=== PATIENT | male | born 1965 | race Caucasian/White ===

== ENCOUNTER 2023-11-14 10:00 | Outpatient (RCR) | payer OTHER, SELFPAY ==
--- NOTE | 2023-10-19 13:09 | HP.PTEVAL_ITS ---
Patient's Visit Information Visit Information Visit Information: ESLENE DE LA CRUZ is a 58 year old M referred to Physical Therapy by Dr. Jose A Whitaker DO with a diagnosis of L hip pain. Date of Evaluation: 10/10/23 Physical Therapist: Jhonny Denise DPT Visit Plan Frequency: 1x/Week Duration: 4 Weeks Plan: 1) L hip mobilizations: lateral distraction, long axis traction to improve L hip ROM 2) Hip strengthening: ABD and ext especially as ROM allows 3) Squat mechanics 4) Stretching ant. hip 5) Balance, DL and SL (HEP: SLR, stand hip ABD & EXT, seated HS and adductor stretch) Subjective Subjective: Pt presents to PT with L hip pain and arthritis that began a while ago. Pt has been taking ibuprofen and icy hot and had appointment with physician 2 weeks ago. Pt reports no falls and would like to get back to walking and working with less pain. 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 Going up stairs a little worse than going down. Pt feels his hip gets weak when standing for long periods of time and has a tendency to favor his RLE. 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 Also has some difficulty with putting on his shoes. Aggs: getting in/out of car, walking, standing, stairs. Eases: resting Pain Left Hip: Pain Intensity (Out of 10): 0 Pain Intensity Range: 0 and 8 Objective Objective: MMT: global 3+/5, L hip ABD 3/5 with pain, L hip ext 2+/5 painful ROM: L hip severely limited 10% ER, 0% IR, lacking 8 deg from neutral hip, 60 deg flex R hip 25% IR, 50% ER PALPATION: federico lower leg edema, worse in RLE, raised areas in L medial thigh/adductor region OBSERVATIONS: R lateral shift and knee valgus with squatting, no pain. Resting flexed position of L hip. Painful to lay on L side GAIT: antalgic gait with decreased stance time on LLE, pt afraid of hip giving out TU.46 s with no LOB or AD 5x STS: 12.47 Pt overall limited by pain with walking and WBing activity, affecting his ab ility to walk prolonged periods, work, and get in/out of a car. Pt is severely limited in L hip ROM d/t advanced arthritis, but he would like to avoid surgery if possible. Pt would benefit from joint mobilizations before exercises to help with pain, had positive results after trialing lateral distraction and long axis manual traction. Balance/Special Test Scores Lower Extremity Functional Score: 48 Goals Goal 1:: Pt will demonstrate 4/5 global hip strength with no instances of pain Goal Time Frame: 2-4 Weeks Goal 2:: Pt will improve L hip ER/IR to 25% or normal ROM with no pain Goal 3:: Pt will be able to amb. 300+ feet with <2/10 pain and more equal stance time Goal Time Frame: 2-4 Weeks Goal 4:: Pt will score 58/80 on LEFS to demonstrate an increase in indep ADLs and ability to work Goal Time Frame: 2-4 Weeks Rehabilitation Potential Physical Therapy Diagnosis: Pt presents to physical therapy with L hip pain and difficulty walking secondary to advanced arthritis and decreased joint space according to recent x-rays. Pt would benefit from PT to address L hip strength, ROM, pain, and tolerance to WB/standing/walking activity. Rehabilitation Potential: Fair Anticipated Interventions Patient/Client Instruction: Educate patient on: Plan of Care For the Purpose of:: To decrease pain, To increase ROM, To improve muscle performance and motor function, To improve ability to perform ADL's, To increase tolerance to activity/condition/position, To improve performance and independence with ADL's, To improve ability of physical actions for home/community/work/leisure, To improve gait and locomotor functions, To decrease soft tissue restriction, To increase flexibility/ROM, To improve endurance, To improve balance, To improve safety with gait, To assume or resume ADL's, To improve self management, To improve ability to perform tasks related to life management and To improve tolerance to ADL's Therapeutic Exercise to Include: Strength training, Balance training, Postural training, Flexibilty training, Gait and locomotor training and Passive ROM For the Purpose of:: To decrease pain, To increase ROM, To improve muscle performance and motor function, To improve ability to perform ADL's, To increase tolerance to activity/condition/position, To improve performance and independence with ADL's, To improve ability of physical actions for home/ community/work/leisure, To improve gait and locomotor functions, To improve health of tissue, To decrease soft tissue restriction, To increase flexibility/ROM, To improve safety with gait, To improve self management, To improve ability to perform tasks related to life management and To improve tolerance to ADL's Manual Therapy Techniques to Include: Mobilization, Passive ROM and Soft tissue mobilization For the Purpose of:: To decrease pain, To increase ROM, To improve ability to perform ADL's, To increase tolerance to activity/condition/position, To improve health of tissue, To decrease soft tissue restriction, To increase flexibility/ROM and To improve tolerance to ADL's Cryotherapy (ice pack, ice massage): Yes Thermo therapy (hot pack): Yes Ultrasound (thermal/non thermal): Yes For the Purpose of:: To decrease pain, To decrease soft tissue restriction and To improve tolerance to ADL's Text: Thank you for the opportunity to evaluate your patient. For Medicare and Medicare HMO plans, please review the plan of care and approve it. It will need to be FAXED BACK to us at [phone] for Medicare purposes. For Medicare only, by signing this I certify the plan of care. Please let me know if there are questions or concerns regarding this plan of care. Physician Signature: Date:
== END 2023-11-14 19:00 | disposition home or self-care (01) ==
LOC: PT 10:00
PROVIDERS: Visit Provider Orthopaedic Surgery
DX: M25.552 Pain in left hip (principal)
CPT/HCPCS: 97110; 97140; 97161

== ENCOUNTER 2025-01-29 01:13 | Emergency (ER) | payer OTHER, SELFPAY ==
[2025-01-29 01:14] VITALS: BP 162/96; PULSE 71; RESP 18; TEMP 36.6; O2SAT 97; BMI 35.7
--- NOTE | 2025-01-29 01:42 | EKG12_ITS ---
Test Reason : Blood Pressure : */* mmHG Vent. Rate : 73 BPM Atrial Rate : 73 BPM P-R Int : 204 ms QRS Dur : 88 ms QT Int : 402 ms P-R-T Axes : 34 -38 -3 degrees QTcB Int : 442 ms Normal sinus rhythm Left axis deviation Abnormal ECG Confirmed by RAQUEL RAMIREZ, IDALIA ([id number]), video effects editor JACEY WHITE ([id number]) on 01/29/2025 10:37:53 AM Referred By: Confirmed By: IDALIA GARCÍA MD
--- NOTE | 2025-01-29 01:42 | ED.VIS.CHEST ---
HPI History of Present Illness Chief Complaint: Chest Pain Informant: patient Onset/Context/Timing Onset: Weeks (1 to 2 weeks.) Activity at onset: gradual Timing: Intermittent Quality: Positive for Dull Location: Left Chest Current Severity: Gone Maximum Severity: Mild Worsened By: Nothing Relieved By: Nothing Associated Symptoms: Negative for Nausea, Vomiting, Diaphoresis, Dyspnea, Cough, Fever, Lightheadedness, Acid Reflux or Palpitations Narrative Prior Similar Symptoms: Yes Recent Illness/Hospitalization: No CVD Risk Factors: Negative for Hypertension, Diabetes, Hypercholesterolemia, Family History 1' </=55 or Smoking PE Risk Factors: Negative for Recent Travel/Surgery, Recent Immobilization or OCP + Smoking + >/=35 TAD Risk Factors: Negative for Marfan's Syndrome PFSH PFSH Medical History no medical history no medical history Home Medications ?Medication ?Instructions ?Recorded ?Last Taken ?Type doxycycline hyclate 100 mg tablet 100 mg PO BID 01/29/25 Unknown History Allergy/AdvReac Type Severity Reaction Status Date / Time No Known Allergies Allergy Verified 01/29/25 01:14 Family History no significant family his Surgical History no surgical history Social History Smoking Status: Never smoker alcohol intake: never ROS ROS ED ROS Narrative Atypical nonexertional chest pain. Constitutional Constitutional ED: Denies chills or fever(s) Eyes Eyes: Reports none ENT ENT ED: Denies ear pain Cardiovascular Cardiovascular: Reports chest pain; Denies palpitations or racing heartbeat Respiratory/Chest Respiratory/Chest: Denies cough, dyspnea or dyspnea on exertion Gastrointestinal Gastrointestinal: Denies abdominal pain, diarrhea, melena, nausea or vomiting Genitourinary Genitourinary ED: Denies dysuria or hematuria Musculoskeletal Musculoskeletal: Denies arthralgias or back pain Integumentary Denies abscess Neurologic Neurologic: Denies headache(s) Psychiatric Psychiatric: Denies anxiety Endocrine Endocrinology: Denies cold intolerance Hematologic/Lymphatic Hematologic/Lymphatic: Denies easy bleeding, easy bruising or lymphadenopathy Allergic/Immunologic Allergic/Immunologic ED: Denies mouth swelling, tongue swelling or urticaria EXAM Physical Exam Narrative Exam Narrative: 59-year-old male sitting upright in bed. Vital signs are stable afebrile. No acute distress. No one else present in the room. Pulse ox 97% on room air no hypoxia. Clinically looks well. H EENT exam pupils round react light. Moist pink members. Neck nontender JVD. Lungs clear to auscultation bilaterally. Equal symmetrical. Heart regular rhythm rate about 70 no murmur. Chest wall and ribs are nontender. No ecchymosis or bruising. No redness or warmth. No reproducible pain. Abdomen soft nontender. Normal bowel sounds without peritoneal signs. Moving all 4 extremities. Equal symmetrical metal base blocker strength. Dorsi plantarflexion intact. Calves are nontender without edema or cords. Back nontender. Neurologically is awake alert no focal motor deficits. Exam benign. Const Vital Signs: 01/29/25 01:14 01/29/25 01:14 01/29/25 01:47 Temperature 97.9 F Temperature Source Oral Pulse Rate 71 Respiratory Rate 18 Respiratory Effort Normal Blood Pressure 162/96 H Blood Pressure Mean 118 Pulse Ox 97 98 Oxygen Delivery Method Room Air Room Air 01/29/25 02:12 01/29/25 03:00 Temperature Temperature Source Pulse Rate 65 64 Respiratory Rate 18 18 Respiratory Effort Blood Pressure 134/70 H 128/82 H Blood Pressure Mean 91 97 Pulse Ox 98 98 Oxygen Delivery Method Room Air Room Air Positive well nourished and well developed; Negative for cachectic, contractures or unkempt General Appearance ED: well developed and NAD; Negative for unkempt, cachectic, contractures or pallor Nutritional Appearance: Negative for cachectic HEENT Reports moist mucous membranes normocephalic and atraumatic Eyes PERRL and EOMs intact bilaterally Neck no lymphadenopathy, supple and no JVD Chest Wall inspection of chest normal and palpation of chest normal Chest: Negative for tenderness Resp normal respiratory effort and clear to auscultation bilaterally Cardio regular rate, regular rhythm, S1 normal heart sound, S2 normal heart sound and no murmurs Peripheral Pulses: pulses 2+ throughout GI normal to inspection, nondistended, normoactive bowel sounds, soft to palpation, non-tender, non-distended and no masses Back/Spine no CVA tenderness and no thoracic nor lumbar tenderness Extremity normal to inspection General Extremety ED: Negative for edema, pulses abnormal or tenderness General Extremity: Negative for edema or pulses abnormal Neuro oriented x3 and CN's II-XII intact bilaterally Sensorium / Orientation: awake, alert, oriented to person, oriented to place and oriented to time; Negative for confused, lethargic or stuporous Motor Exam: strength 5/5 throughout Psych mental status grossly normal Appearance: Negative for unkempt Attitude: No agitated Mood & Affect: Negative for depressed, anxious or tearful Skin no rashes or lesions noted and no wounds General Skin Exam: Negative for jaundice or pallor Rashes: No rashes noted Trauma: Negative for abrasion or laceration MDM MDM MDM Narrative Medical decision making narrative: 59-year-old male atypical nonexertional chest pain. Low suspicion of feel this is cardiac. Undergo cardiac workup if its negative will be discharged home. I do not think he needs to be admitted for stress test or heart cath unless he has elevated troponins. Exam is benign. Is not reproducible. He has no history or risk factors for DVT or PE. Repeat exam patient is doing well at 3:13 AM. We went over his test results. Given he has had this pain for a week and a half. He has had a recent workup at another emergency department and has negative workup tonight my suspicion is low I am comfortable with him being discharged to home as is the patient. Outpatient follow-up. History & Record Review Discussion w/independent historian: Patient Lab Data Attestation: I reviewed the patient's lab results. Lab results narrative: CBC shows a white count 8. H&H 14 and 42. Platelets 268. Electrolytes show sodium 136. Gap 11. Normal BUN of 18 creatinine 1.1. Glucose 101. Troponin 11. Chest x-ray chronic changes no acute process. Labs: Laboratory Results - last 24 hr 01/29/25 01:20 WBC 8.4 RBC 4.84 Hgb 14.9 Hct 42.3 MCV 87.4 MCH 30.8 MCHC 35.2 RDW Std Deviation 44.1 H RDW Coeff of Rakesh 13.8 Plt Count 268 MPV 9.7 Immature Gran % (Auto) 0.400 Neut % (Auto) 55.6 Lymph % (Auto) 34.2 [place] % (Auto) 8.3 Eos % (Auto) 0.7 Baso % (Auto) 0.8 Absolute Neuts (auto) 4.7 Absolute Lymphs (auto) 2.87 Nucleated RBC % 0 Sodium 136 Potassium 3.7 Chloride 101 Carbon Dioxide 24.7 Anion Gap 11 BUN 18 Creatinine 1.19 Estim Creat Clear Calc 90.35 Est GFR (MDRD) Non-Af 71 BUN/Creatinine Ratio 15.5 Glucose 101 H Calcium 9.6 Troponin T High Sens 11 Radiography Chest X-Ray - ED: 2 View, Read by ED Physician, Read by Radiologist, Heart, Lungs, Mediastinum, Bony Structures, No Acute Disease and Chronic Changes Diagnostic Testing: Clinical Impression(s) from Imaging Studies Chest X-Ray 01/29/25 02:15 IMPRESSION: No evidence of acute disease. Reading Location: [facility] Chest x-ray, 2 views, AP and lateral, interpreted by myself and the radiologist shows no acute abnormality. Normal cardiac silhouette. Normal lung [place]. Chronic changes. Rhythm Strip Rhythm Strip: Sinus Rhythm Rate: 73 Ectopy: None EKG Initial EKG: Attestation: I personally reviewed and interpreted this EKG as follows: Interpretation: Sinus Rhythm and No Acute Injury Pattern Comments: Normal sinus rhythm rate of 73 no acute signs of WI or ischemia. No dysrhythmia. Normal EKG. Discharge Plan Triage Chief Complaint: Chest Pain ED Provider: Jeovany Mustafa Dx/Rx/DC Orders Prescriptions: No Action doxycycline hyclate 100 mg tablet 100 mg PO BID Primary Care Provider: Care Physician,No Primary Referrals: Care Physician,No Primary [Primary Care Provider] - Print Language: Ukrainian
[2025-01-29 01:47] VITALS: O2SAT 98
[2025-01-29 01:48] LABS: Absolute Lymphocyte Count 2.87 X10^3/uL (0.83-4.51); Absolute Neutrophil Count 4.7 X10^3/uL (2.0-7.7); Basophil# 0.07 X10^3/uL; Basophil% 0.8 % (0-1); Eosinophil# 0.06 X10^3/uL; Eosinophils% 0.7 % (0-5); Hematocrit 42.3 % (40-54); Hemoglobin 14.9 g/dL (13.0-16.5); Lymphocyte # 2.87 X10^3/ul (0.83-4.51); Lymphocyte % 34.2 % (19-41); Mean Corp Hgb Conc 35.2 g/dL (32-36); Mean Corpuscular Hgb 30.8 pg (27.0-32.0); Mean Corpuscular Volume 87.4 fL (80-94); Mean Platelet Vol. 9.7 fl (6.2-12.0); Monocyte% 8.3 % (0-10); NRBC Flagged by Analyzer 0 % (0-5); Neutrophil # 4.67 X10^3/uL (2.7-7.7); Neutrophil % 55.6 % (47-70); Platelet Count 268 K/mm3 (150-450); RBC Distribution Width CV 13.8 % (11.6-14.6); RBC Distribution Width SD 44.1 fl (35.1-43.9); Red Blood Count 4.84 M/mm3 (4.6-6.2); White Blood Count 8.4 K/mm3 (4.4-11.0)
[2025-01-29 02:12] VITALS: BP 134/70; PULSE 65; RESP 18; O2SAT 98
[2025-01-29 02:13] LABS: Anion Gap 11 (5-15); BUN 18 mg/dL (4-19); BUN/Creat Ratio 15.5 RATIO (10-20); Calcium,Total 9.6 mg/dL (7.6-11.0); Carbon Dioxide 24.7 mmol/L (21.0-32.0); Chloride 101 mmol/L (98-108); Creatinine, Serum 1.19 mg/dL (0.70-1.20); EST Glomerular Filtration Rate 71 (>60); Estimated Creatinine Clearance 90.35 ml/min (50-250); Glucose 101 mg/dL (70-99); Potassium 3.7 mmol/L (3.3-5.1); Sodium Level 136 mmol/L (133-145); Troponin T High Sensitivity 11 ng/L (<=22)
--- NOTE | 2025-01-29 02:15 | RAD_ITS ---
PROCEDURE: CHEST PA AND LATERAL 01/29/2025 REASON FOR EXAM: CHEST PAIN TECHNIQUE: Frontal and lateral views of the chest. COMPARISON: None available FINDINGS: The lungs appear clear. Pulmonary vascularity appears within limits. No pleural effusion. The cardiac and mediastinal contours appear within limits. The visualized osseous structures appear within limits. RAD/Chest PA and Lateral IMPRESSION: No evidence of acute disease. Reading Location: [id number]
[2025-01-29 03:00] VITALS: BP 128/82; PULSE 64; RESP 18; O2SAT 98
[2025-01-29 03:16] VITALS: BP 134/84; PULSE 63; RESP 18; TEMP 36.7; O2SAT 100
== END 2025-01-29 03:25 | disposition home or self-care (01) ==
PROVIDERS: Emergency Provider Emergency Medicine; Visit Provider Emergency Medicine
DX: R07.9 Chest pain, unspecified (principal)
CPT/HCPCS: 71046; 80048; 84484; 85025; 93005; 99285; A4216

== ENCOUNTER → 2025-02-06 | Outpatient (CLI) | payer OTHER, SELFPAY ==
[2025-02-06 23:16] LABS: Cholesterol 116 mg/dL (<=200); High Density Lipoprotein 46 mg/dL; Low Density Lipoprotein Calc. 49 mg/dL; Triglycerides 105 mg/dL; Very Low Density Lipoprotein 21 mg/dL (5-40); cholesterol:hdl ratio screen 2.54
== END | disposition home or self-care (01) ==
LOC: OLS.AHF 22:12 → LABSPEC 02-07 09:53
PROVIDERS: PCP Nurse Practitioner; Referring Provider Nurse Practitioner; Visit Provider Nurse Practitioner
DX: R60.0 Localized edema (principal); F41.9 Anxiety disorder, unspecified; R35.0 Frequency of micturition; R53.83 Other fatigue
CPT/HCPCS: 80061; 84153; 84443; G0103